=== PATIENT | male | born 1990 | race American Indian/Alaskan Native ===

== ENCOUNTER 2019-09-28 11:07 | Emergency (ER) | payer OTHER ==
--- NOTE | 2019-09-28 11:43 | EDM.PDOC ---
ED HPI GENERAL MEDICAL PROBLEM - General Chief Complaint: Abdominal Pain Stated Complaint: RIGHT SIDE PAIN Time Seen by Provider: 09/28/19 11:30 Source of Information: Reports: Patient History Limitations: Reports: No Limitations - History of Present Illness INITIAL COMMENTS - FREE TEXT/NARRATIVE: Wilder comes into [facility] ED with acute onset of lower abdominal pain beginning at 0500 hrs. Pain was initially midline, deep and intense, with colicky features and eventual migration to the RLQ. There is some loss of appetite, but no nausea or pain in the R CVA. He has voided once without sxs, and no BM. There is no known exposure, travel, or prior GI or disorder. He has tried no meds. Right Abdomen Pain Score (Numeric/FACES): 10 - Related Data Allergies Allergy/AdvReac Type Severity Reaction Status Date / Time No Known Allergies Allergy Verified 09/28/19 11:25 Home Meds: Home Meds NK [No Known Home Meds] 09/28/19 [History] ED ROS GENERAL - Review of Systems Review Of Systems: Comprehensive ROS is negative, except as noted in HPI. ED EXAM, GI/ABD - Physical Exam Exam: See Below Exam Limited By: No Limitations General Appearance: Alert, WD/WN, Mild Distress Eyes: Bilateral: Normal Appearance, EOMI Ears: Normal Canal Nose: Normal Inspection Throat/Mouth: Normal Inspection Head: Normocephalic Neck: Normal Inspection, Supple, Non-Tender, Full Range of Motion Respiratory/Chest: No Respiratory Distress, Lungs Clear, Normal Breath Sounds, No Accessory Muscle Use, Chest Non-Tender Cardiovascular: Normal Peripheral Pulses, Regular Rate, Rhythm, No Murmur GI/Abdominal Exam: Normal Bowel Sounds, Soft, No Organomegaly, No Distention, No Mass, Guarding, Tender (RLQ with some guarding) (Male) Exam: Normal Inspection Rectal (Males) Exam: Deferred Back Exam: Normal Inspection Extremities: Normal Inspection Neurological: Alert, Oriented, CN II-XII Intact, Normal Cognition, No Motor/ Sensory Deficits Psychiatric: Normal Affect, Normal Mood Skin Exam: Warm, Dry, Intact, Normal Color, No Rash Lymphatic: No Adenopathy Course - Vital Signs Text/Narrative:: Following assessment, I administered Toradol 30 mg IM for comfort pending results of screening labwork: the CBC, BMP and UA were baseline, and the CRP 1.8 was mildly elevated. An Abd-Pelvic CT wo contrast revealed an area involving the distal jejunum and proximal ileum with abnormal thickening and features for a partial SBO. IBD is suspected in the differential diagnosis. Case was discussed with Dr Ubaldo Mireles of the [facility] in [place], [place], and he will assume care when Wilder arrives by POV this afternoon. Patient is in agreement with this COA. Last Recorded V/S: Last Vital Signs Temp 37.0 C 09/28/19 11:10 Pulse 65 09/28/19 11:10 Resp 18 09/28/19 11:10 BP 142/86 H 09/28/19 11:10 Pulse Ox 98 09/28/19 11:10 - Orders/Labs/Meds Orders: Active Orders 24 hr Category Date Time Status Abdomen Pelvis wo Cont [CT] Stat Exams 09/28/19 12:15 Taken Sodium Chloride 0.9% [Saline Flush] Med 09/28/19 11:36 Active 10 ml FLUSH ASDIRECTED PRN Peripheral IV Insertion Adult [OM.PC] Routine Oth 09/28/19 11:36 Ordered Medication Orders Sodium Chloride (Saline Flush) 10 ml FLUSH ASDIRECTED PRN PRN Reason: Keep Vein Open Last Admin: 09/28/19 11:57 Dose: 10 ml Labs: Laboratory Tests 09/28/19 09/28/19 09/28/19 Range/Units 11:36 11:58 11:58 WBC 6.5 (4.5-12.0) X10-3/uL RBC 5.52 (4.30-5.75) x10(6)uL Hgb 14.7 (13.5-17.8) g/dL Hct 44.2 (30.0-51.3) % MCV 80.0 (80-96) fL MCH 26.6 L (27.7-33.6) pg MCHC 33.2 (32.2-35.4) g/dL RDW 12.2 (11.5-15.5) % Plt Count 189 (125-369) X10(3)uL MPV 8.0 (7.4-10.4) fL Neut % (Auto) 51.2 (46-82) % Lymph % (Auto) 35.4 (13-37) % [place] % (Auto) 11.1 (4-12) % Eos % (Auto) 1 (1.0-5.0) % Baso % (Auto) 1 (0-2) % Neut # (Auto) 3.3 (1.6-8.3) # Lymph # (Auto) 2.3 (0.6-5.0) # [place] # (Auto) 0.7 (0.0-1.3) # Eos # (Auto) 0.1 (0.0-0.8) # Baso # (Auto) 0.1 (0.0-0.2) # Sodium 138 (135-145) mmol/L Potassium 3.7 (3.5-5.3) mmol/L Chloride 102 (100-110) mmol/L Carbon Dioxide 27 (21-32) mmol/L BUN 12 (7-18) mg/dL Creatinine 0.9 (0.70-1.30) mg/dL Est Cr Clr Drug Dosing 123.92 mL/min Estimated GFR (MDRD) > 60 (>60) BUN/Creatinine Ratio 13.3 (9-20) Glucose 94 D (80-116) mg/dL Lactic Acid (0.4-2.0) mmol/L Calcium 8.7 (8.6-10.2) mg/dL C-Reactive Protein (0.5-0.9) mg/dL Urine Color Yellow (YELLOW) Urine Appearance Slightly cloudy (CLEAR) Urine pH 6.0 (5.0-6.5) Ur Specific [place] 1.020 (1.010-1.025) Urine Protein Negative (NEGATIVE) mg/dL Urine Glucose (UA) Normal (NORMAL) mg/dL Urine Ketones Negative (NEGATIVE) mg/dL Urine Occult Blood Negative (NEGATIVE) Urine Nitrite Negative (NEGATIVE) Urine Bilirubin Negative (NEGATIVE) Urine Urobilinogen 1 H (NEGATIVE) mg/dL Ur Leukocyte Esterase Negative (NEGATIVE) Urine RBC 0-5 (0-5) Urine WBC 0-5 (0-5) Ur Squamous Epith Cells Occasional (NS,R,O) Urine Bacteria Few H (NS) Urine Mucus Many H (NS) 09/28/19 09/28/19 Range/Units 11:58 11:58 WBC (4.5-12.0) X10-3/uL RBC (4.30-5.75) x10(6)uL Hgb (13.5-17.8) g/dL Hct (30.0-51.3) % MCV (80-96) fL MCH (27.7-33.6) pg MCHC (32.2-35.4) g/dL RDW (11.5-15.5) % Plt Count (125-369) X10(3)uL MPV (7.4-10.4) fL Neut % (Auto) (46-82) % Lymph % (Auto) (13-37) % [place] % (Auto) (4-12) % Eos % (Auto) (1.0-5.0) % Baso % (Auto) (0-2) % Neut # (Auto) (1.6-8.3) # Lymph # (Auto) (0.6-5.0) # [place] # (Auto) (0.0-1.3) # Eos # (Auto) (0.0-0.8) # Baso # (Auto) (0.0-0.2) # Sodium (135-145) mmol/L Potassium (3.5-5.3) mmol/L Chloride (100-110) mmol/L Carbon Dioxide (21-32) mmol/L BUN (7-18) mg/dL Creatinine (0.70-1.30) mg/dL Est Cr Clr Drug Dosing mL/min Estimated GFR (MDRD) (>60) BUN/Creatinine Ratio (9-20) Glucose (80-116) mg/dL Lactic Acid 0.7 (0.4-2.0) mmol/L Calcium (8.6-10.2) mg/dL C-Reactive Protein 1.8 H (0.5-0.9) mg/dL Urine Color (YELLOW) Urine Appearance (CLEAR) Urine pH (5.0-6.5) Ur Specific [place] (1.010-1.025) Urine Protein (NEGATIVE) mg/dL Urine Glucose (UA) (NORMAL) mg/dL Urine Ketones (NEGATIVE) mg/dL Urine Occult Blood (NEGATIVE) Urine Nitrite (NEGATIVE) Urine Bilirubin (NEGATIVE) Urine Urobilinogen (NEGATIVE) mg/dL Ur Leukocyte Esterase (NEGATIVE) Urine RBC (0-5) Urine WBC (0-5) Ur Squamous Epith Cells (NS,R,O) Urine Bacteria (NS) Urine Mucus (NS) Meds: Medications Generic Name Dose Route Start Last Admin Trade Name Freq PRN Reason Stop Dose Admin Sodium Chloride 10 ml 09/28/19 11:36 09/28/19 11:57 Saline Flush FLUSH 10 ml ASDIRECTED PRN Administration Keep Vein Open Discontinued Medications Generic Name Dose Route Start Last Admin Trade Name Fidelq PRN Reason Stop Dose Admin Ketorolac Tromethamine 30 mg 09/28/19 11:38 09/28/19 11:54 Toradol IVPUSH 09/28/19 11:39 30 mg ONETIME ONE Administration Departure - Departure Time of Disposition: 13:14 Disposition: DC/Tfer to Other 70 Condition: Fair Clinical Impression: Partial small bowel obstruction - Discharge Information *PRESCRIPTION DRUG MONITORING PROGRAM REVIEWED*: Not Applicable *COPY OF PRESCRIPTION DRUG MONITORING REPORT IN PATIENT KIERSTEN: Not Applicable Referrals: PCP,None [Primary Care Provider] - Forms: ED Department Discharge Sepsis Event Note - Evaluation Sepsis Screening Result: No Definite Risk - Focused Exam Vital Signs: Vital Signs Temp Pulse Resp BP Pulse Ox 09/28/19 11:10 37.0 C 65 18 142/86 H 98 Date Exam was Performed: 09/28/19 Time Exam was Performed: 13:11 - Problem List & Annotations (1) Partial small bowel obstruction SNOMED Code(s): 256186119 Code(s): K56.600 - PARTIAL INTESTINAL OBSTRUCTION, UNSPECIFIED TO CAUSE Status: Acute Current Visit: Yes Annotation/Comment:: Partial SBO with some features for IBD. Medical records will be sent to the [facility] this afternoon for subsequent referral to GI [facility]. - Problem List Review Problem List Initiated/Reviewed/Updated: Yes - My Orders Last 24 Hours: My Active Orders 09/28/19 11:36 Sodium Chloride 0.9% [Saline Flush] 10 ml FLUSH ASDIRECTED PRN Peripheral IV Insertion Adult [OM.PC] Routine 09/28/19 12:15 Abdomen Pelvis wo Cont [CT] Stat - Assessment/Plan Last 24 Hours: My Active Orders 09/28/19 11:36 Sodium Chloride 0.9% [Saline Flush] 10 ml FLUSH ASDIRECTED PRN Peripheral IV Insertion Adult [OM.PC] Routine 09/28/19 12:15 Abdomen Pelvis wo Cont [CT] Stat Plan: Follow up with [facility] this afternoon.
[2019-09-28] MEDS: Ketorolac 30 MG/ML SDV IVPUSH ONE (11:54)
[2019-09-28] MEDS: Sodium Chloride 0.9% 10 ML Syringe FLUSH PRN (11:57)
--- NOTE | 2019-09-28 13:38 | CT ---
INDICATION: Right lower quadrant abdominal pain-acute onset of colicky right lower quadrant pain since [address]500 hours[address] of [address] ABDOMEN AND PELVIS WITHOUT CONTRAST: Spiral 2.5 mm axial sections were obtained through the abdomen and pelvis with renal calculus protocol including sagittal and coronal reconstructions with no IV contrast or oral contrast. Examination was obtained 09/28/2019-no comparisons. Total exam DLP was 504.15 mGy-cm. The lower lung freedman and pleural spaces visualized appeared normal. The heart is normal in size. No pericardial effusion was seen. No evidence of renal calcinosis is identified. No evidence of ureteral or urinary bladder calculi were identified-no evidence of obstructive uropathy was seen. No gross renal masses were identified. No gallstones were seen. The liver, spleen, pancreas, common bile duct, and adrenal glands were unremarkable. Retroperitoneal lymphadenopathy is minimal and nonspecific. No retroperitoneal mass was seen. The appendix appeared normal visualized on jean. images 45 through 53 and axial images 93 through 99. No evidence of free air or definite bowel obstruction was seen. However, there are a few loops of dilated jejunum with some air fluid levels, which appear to transition to normal caliber distal jejunum or proximal ileum in the right mid abdomen. This would suggest a partial or early mechanical obstruction in that area. A specific etiology is not identified. A subtle intussusception, possibly a Meckel's diverticulum intussusception or even neoplasia would be considerations. This process may be relatively long standing, as there appears to be some organization of stool in these loops of small bowel distal portion. No other organomegaly, mass lesions or free fluid collections are identified in the abdomen or pelvis. IMPRESSION: 1. Findings suggest a partial small bowel obstruction at the level of the distal jejunum or more likely proximal ileum. Exact etiology is indeterminate. 2. CT abdomen and pelvis otherwise unremarkable with no evidence of obstructive uropathy or renal calcinosis. Report was given in person to Dr Rossi, soon after it was available. [facility]ITAL[facility]anna
== END 2019-09-28 13:27 | disposition other institution (70) ==
LOC: FB.ED 11:07
DX: K56.600 Partial intestinal obstruction, unspecified as to cause (principal)
CPT/HCPCS: 36415; 74176; 80048; 81001; 82272; 83605; 85025; 86140; 96374; 99284-25; J1885